=== PATIENT | female | born 1950 | race Asian ===

== ENCOUNTER 2018-08-15 17:47 | Emergency (ER) | payer MEDICAID ==
[~2018-08-15] VITALS: Ht 152.4 cm; Wt 55.0 kg
[2018-08-15 19:05] LABS: Basophils # (auto) 0 uL; Basophils % (auto) 0.3 % (0.0-2.0); Eosinophils # (auto) 0.1 uL; Eosinophils % (auto) 2.2 % (0.0-7.0); Hematocrit 41.6 % (36.0-46.0); Hemoglobin 13.7 g/dL (12.2-16.2); Lymphocytes % (auto) 42.8 % (10.0-50.0); Mean Corpuscular Hgb Conc. 32.8 g/dL (32.0-36.0); Mean Corpuscular Volume 91.4 fL (80.0-100.0); Monocytes # (auto) 0.3 uL; Monocytes % (auto) 6.8 % (0.0-12.0); Neutrophils # (auto) 2.3 uL; Neutrophils % (auto) 47.9 % (37.0-80.0); Nucleated Red Blood Cells % 0.1 %; Platelet Count (auto) 231 10^3/uL (140-450); Red Blood Cells 4.55 10^6/uL (4.0-5.20); Red Cell Distribution Width 12.9 % (11.8-14.3); White Blood Cell 4.7 10^3/uL (4.4-10.8)
[2018-08-15 19:21] LABS: Potassium 3.6 mmol/L (3.5-5.1)
[2018-08-15 19:26] LABS: Bilirubin, Total 0.8 mg/dL (0.2-1.0); Total Protein 8.2 g/dL (6.4-8.2)
[2018-08-16 00:56] LABS: Amylase 64 U/L (25-115); Lipase 87 U/L (73-393)
[2018-08-16] MEDS: IOHEXOL 300 MG/ML 100ML BOTTLE IJ ONE (01:48)
[2018-08-16] MEDS: SODIUM CHLORIDE 0.9% 500 ML IV ONE (02:10)
[2018-08-16 03:41] LABS: Urine Bacteria NONE SEEN /hpf (None Seen); Urine Blood Negative /uL (Negative); Urine Specific Gravity 1.043 (1.001-1.035); Urine WBC 2 /hpf (0 - 5)
[2018-08-16 04:00] VITALS: BP 147/81
== END 2018-08-16 04:17 | disposition home or self-care (01) ==
LOC: ER 17:54
DX: I10 Essential (primary) hypertension (principal); K59.00 Constipation, unspecified; K21.9 Gastro-esophageal reflux disease without esophagitis; E78.5 Hyperlipidemia, unspecified
CPT/HCPCS: 36415; 71250; 74177; 80053; 81001; 82150; 83690; 85025; 93005; 96360; 99284; J7040; Q9967